=== PATIENT | female | born 1985 | race Caucasian/White ===

== ENCOUNTER 2021-04-20 23:55 | Observation (INO) | payer OTHER ==
[~2021-04-20] VITALS: Ht 160 cm; Wt 91.6 kg
[2021-04-21] MEDS ORDERED: FERROUS SULFATE (02:30)
[2021-04-21] MEDS ORDERED: PRENATAL VITAMINS (02:30)
[2021-04-21] MEDS ORDERED: OMEG-119 PO (02:30)
[2021-04-21] MEDS ORDERED: ACETAMINOPHEN 325MG TABLET PO NR (02:45)
== END 2021-04-21 03:30 | disposition home or self-care (01) ==
LOC: 8 EST LDRP 23:55
PROVIDERS: ADMIT Obstetrics & Gynecology; ATTEND Obstetrics & Gynecology
DX: O99.891 Other specified diseases and conditions complicating pregnancy (principal); M54.9 Dorsalgia, unspecified; O09.522 Supervision of elderly multigravida, second trimester; Z3A.23 23 weeks gestation of pregnancy
CPT/HCPCS: 59025; 76805; G0378; 99281